=== PATIENT | male | born 1985 | race African-American/Black ===

== ENCOUNTER 2016-08-10 10:54 | Emergency (ER) | payer SELFPAY ==
[~2016-08-10] VITALS: Ht 180.3 cm; Wt 71.0 kg
[2016-08-10] MEDS ORDERED: CEFTRIAXONE SODIUM 250 MG/VIAL IM ONE (13:15)
[2016-08-10] MEDS ORDERED: LIDOCAINE HCL 1% 20ML VIAL (Pyxis) INJ MC ONE (13:15)
[2016-08-10] MEDS ORDERED: AZITHROMYCIN 500 MG TABLET PO ONE (13:15)
[2016-08-10 13:51] LABS: GLUCOSE URINE NEGATIVE (NEGATIVE); KETONES URINE NEGATIVE (NEGATIVE); LEUKOCYTE ESTERASE URINE 1+ (NEGATIVE); NITRITE URINE NEGATIVE (NEGATIVE); OCCULT BLOOD URINE 1+ (NEGATIVE); PROTEIN URINE TRACE (NEGATIVE); SPECIFIC GRAVITY URINE 1.025 (1.005-1.030)
[2016-08-10 13:54] LABS: COLOR URINE YELLOW (YELLOW)
[2016-08-10 13:55] LABS: CLARITY URINE CLOUDY (CLEAR)
[2016-08-10 14:12] LABS: BACTERIA URINE TRACE; SQUAMOUS EPITHELIAL CELL URINE RARE /lpf (RARE/1+); WBC URINE 25-50 /hpf (0-2)
[2016-08-10 14:13] LABS: MUCUS URINE 1+ /lpf (NONE/TRACE)
[2016-08-10 15:54] VITALS: BP 109/62
[2016-08-12 04:42] LABS: CHLAMYDIA TRACHOMATIS NAA Negative (Negative); NEISSERIA GONORRHOEAE NAA Negative (Negative)
== END 2016-08-10 15:58 | disposition home or self-care (01) ==
LOC: ER 13:04
DX: Z11.3 Encounter for screening for infections with a predominantly sexual mode of transmission (principal); N39.0 Urinary tract infection, site not specified; F17.210 Nicotine dependence, cigarettes, uncomplicated; F12.90 Cannabis use, unspecified, uncomplicated
CPT/HCPCS: 81001; 87491; 87591; 96372; 99284; J0696; J3490